=== PATIENT | female | born 1975 | race Caucasian/White ===

== ENCOUNTER 2017-06-18 22:13 | Inpatient (IN) | payer MEDICAID ==
[~2017-06-18] VITALS: Ht 167.6 cm; Wt 79.4 kg
[2017-06-18 23:15] LABS: BASOPHIL % 0.6 % (0-2); PLATELET COUNT 279 x10^3mcL (130-400)
[2017-06-18 23:21] LABS: RED CELL DISTRIBUTION WIDTH 16.8 % (11.5-14.5)
[2017-06-18 23:23] LABS: CALCIUM 7.9 mg/dL (8.5-10.1); CARBON DIOXIDE 25.5 mmol/L (21-32); CHLORIDE SERUM 107 mmol/L (98-107); CREATININE SERUM 0.7 mg/dL (0.6-1.0); GFR1 > 60 mL/min; GLUCOSE SERUM 84 mg/dL (74-106); POTASSIUM SERUM 3.4 mmol/L (3.5-5.1); SODIUM SERUM 141 mmol/L (136-145)
[2017-06-18 23:28] LABS: ALKALINE PHOSPHATASE 92 U/L (46-116); ALT/SGPT 20 U/L (14-59); AST/SGOT 14 U/L (15-37); BILIRUBIN TOTAL 0.5 mg/dL (0.20-1.00); LIPASE 125 IU/L (73-393); TOTAL PROTEIN, SERUM 6.6 g/dL (6.4-8.2)
[2017-06-18 23:30] LABS: ALBUMIN 3.1 g/dL (3.4-5.0)
[2017-06-19] VITALS (7 sets, daily range): BP systolic 98–136; BP diastolic 49–93
[2017-06-19 01:48] LABS: microscopic required? YES; urine erythrocyte 3+ (NEGATIVE)
[2017-06-19] MEDS ORDERED: EPZICOM1 TAB (02:30)
[2017-06-19] MEDS ORDERED: XANAX0.5 MG PO (02:30)
[2017-06-19] MEDS ORDERED: VITAMIN B121000 MCG PO (03:06)
[2017-06-19 04:10] LABS: T3 TOTAL 0.92 ng/mL
[2017-06-19 04:12] LABS: MAGNESIUM 2.1 mg/dL (1.8-2.4); PHOSPHOROUS 3.5 mg/dL (2.5-4.9)
[2017-06-19 04:14] LABS: TOTAL IRON BINDING CAPACITY 393 ug/dL (250-450)
[2017-06-19 04:18] LABS: CHOLESTEROL/HDL RATIO 2.3; IRON 15 ug/dL (50-170)
[2017-06-19 04:20] LABS: FREE T4 1.09 ng/dL (0.76-1.46); FREE THYROXINE INDEX 2.7 ug/dL (1.4-4.5); T4(THYROXINE) 7.7 ug/dL (4.7-13.3)
[2017-06-19 08:11] LABS: PLATELET COUNT 240 x10^3mcL (130-400); RED BLOOD CELLS 3.55 M/mm3 (4.10-5.10); RED CELL DISTRIBUTION WIDTH 17.2 % (11.5-14.5)
[2017-06-19 08:28] LABS: CALCIUM 7.9 mg/dL (8.5-10.1); CARBON DIOXIDE 23.4 mmol/L (21-32); CHLORIDE SERUM 108 mmol/L (98-107); CREATININE SERUM 0.7 mg/dL (0.6-1.0); GFR1 > 60 mL/min; GLUCOSE SERUM 143 mg/dL (74-106); POTASSIUM SERUM 3.6 mmol/L (3.5-5.1); SODIUM SERUM 142 mmol/L (136-145)
[2017-06-19 10:45] LABS: BAND NEUTROPHIL 2 % (0-10); BASOPHIL 0 % (0-2); PLATELET MORPHOLOGY GIANT PLATELET SEEN; SEGMENTED NEUTROPHILS 88 % (37-75); rbc morphology (normal/abnorm) ABNORMAL (NORMAL)
[2017-06-19 21:29] LABS: AMPHETAMINE QUAL UR NONE DETECTED (NEG <=1000)
[2017-06-20 06:27] LABS: CARBON DIOXIDE 25.2 mmol/L (21-32); CHLORIDE SERUM 109 mmol/L (98-107); CREATININE SERUM 0.7 mg/dL (0.6-1.0); GFR1 > 60 mL/min; GLUCOSE SERUM 111 mg/dL (74-106); PHOSPHOROUS 2.9 mg/dL (2.5-4.9); POTASSIUM SERUM 3.8 mmol/L (3.5-5.1); SODIUM SERUM 140 mmol/L (136-145)
[2017-06-20 06:36] VITALS: BP 103/75
[2017-06-20 08:56] LABS: BASOPHIL % 0.4 % (0-2); PLATELET COUNT 294 x10^3mcL (130-400)
[2017-06-20 09:02] LABS: RED CELL DISTRIBUTION WIDTH 17.1 % (11.5-14.5)
[2017-06-20 09:03] VITALS: BP 92/54
[2017-06-20 13:37] VITALS: BP 109/69
[2017-06-20 16:55] VITALS: BP 90/55
[2017-06-20 19:56] VITALS: BP 106/68
[2017-06-21 06:17] VITALS: BP 93/64
[2017-06-21 07:16] LABS: CALCIUM 7.8 mg/dL (8.5-10.1); CARBON DIOXIDE 28.6 mmol/L (21-32); CHLORIDE SERUM 109 mmol/L (98-107); CREATININE SERUM 0.7 mg/dL (0.6-1.0); GFR1 > 60 mL/min; GLUCOSE SERUM 84 mg/dL (74-106); SODIUM SERUM 142 mmol/L (136-145)
[2017-06-21 07:42] LABS: BASOPHIL % 0.4 % (0-2); PLATELET COUNT 277 x10^3mcL (130-400)
[2017-06-21 07:43] LABS: RED CELL DISTRIBUTION WIDTH 17.2 % (11.5-14.5); rbc morphology (normal/abnorm) ABNORMAL (NORMAL)
[2017-06-21 09:47] VITALS: BP 139/83
[2017-06-21] MEDS ORDERED: FER300 PO (11:44)
[2017-06-21] MEDS ORDERED: ELA25 PO (11:46)
[2017-06-21] MEDS ORDERED: VITC PO (11:48)
[2017-06-21] MEDS ORDERED: OMEPRAZOLE40 M1 PO (11:53)
[2017-06-21] MEDS ORDERED: AMITIZA24 MC1 PO (11:54)
[2017-06-21 12:10] VITALS: BP 139/83
== END 2017-06-21 11:15 | disposition home or self-care (01) | DRG 241 ==
LOC: ED 22:13 → DU 06-19 02:00 → MU 06-21 06:28
PROVIDERS: Emergency Medicine; Family Medicine; Internal Medicine Gastroenterology; ADMIT Student in an Organized Health Care Education/Training Program
PROC: 0DB68ZX Excision of Stomach, Via Natural or Artificial Opening Endoscopic, Diagnostic (ICD-10-PCS; principal; 2017-06-20 09:30)
PROC: 0DJD8ZZ Inspection of Lower Intestinal Tract, Via Natural or Artificial Opening Endoscopic (ICD-10-PCS; 2017-06-21)
DX: K25.9 Gastric ulcer, unspecified as acute or chronic, without hemorrhage or perforation (principal); E44.0 Moderate protein-calorie malnutrition; T88.6XXA Anaphylactic reaction due to adverse effect of correct drug or medicament properly administered, initial encounter; F12.10 Cannabis abuse, uncomplicated; D50.9 Iron deficiency anemia, unspecified; K31.7 Polyp of stomach and duodenum; T40.2X5A Adverse effect of other opioids, initial encounter; T40.7X1A Poisoning by cannabis (derivatives), accidental (unintentional), initial encounter; R11.10 Vomiting, unspecified; F12.188 Cannabis abuse with other cannabis-induced disorder; K59.00 Constipation, unspecified; E87.6 Hypokalemia; R31.9 Hematuria, unspecified; K64.4 Residual hemorrhoidal skin tags; K21.9 Gastro-esophageal reflux disease without esophagitis; Z98.84 Bariatric surgery status; Z68.28 Body mass index [BMI] 28.0-28.9, adult; Y92.009 Unspecified place in unspecified non-institutional (private) residence as the place of occurrence of the external cause; Y92.230 Patient room in hospital as the place of occurrence of the external cause
CPT/HCPCS: 43235; 45378; 83880; 84439; 90658; C9113; J0171; J1170; J1200; J1610; J1885; J2250; J2270; J2310; J2405; J2765; J2916; J2920; J2930; J3010; J3480; J3490; J7030; Q0092; Q0163

== ENCOUNTER 2017-07-14 01:15 | Emergency (ER) | payer OTHER ==
[~2017-07-14] VITALS: Ht 167.6 cm; Wt 81.6 kg
[~2017-07-14 01:15] MED LIST: AMITIZA24 MC1 PO; ELA25 PO; EPZICOM1 TAB; FER300 PO; OMEPRAZOLE40 M1 PO; VITAMIN B121000 MCG PO; VITC PO; XANAX0.5 MG PO
[2017-07-14 01:19] VITALS: BP 127/71; Ht 167.6 cm; Wt 81.6 kg
== END 2017-07-14 05:53 | disposition left against medical advice (07) ==
LOC: ED 01:15
DX: Z53.21 Procedure and treatment not carried out due to patient leaving prior to being seen by health care provider (principal)

== ENCOUNTER 2017-07-16 22:12 | Emergency (ER) | payer OTHER ==
[~2017-07-16] VITALS: Ht 167.6 cm; Wt 79.4 kg
[2017-07-16 22:37] VITALS: Ht 167.6 cm; Wt 79.4 kg
[2017-07-17 01:53] VITALS: BP 118/70
== END 2017-07-17 01:53 | disposition home or self-care (01) ==
LOC: ED 22:12
DX: B34.9 Viral infection, unspecified (principal); M32.9 Systemic lupus erythematosus, unspecified; Z86.718 Personal history of other venous thrombosis and embolism; Z88.5 Allergy status to narcotic agent
CPT/HCPCS: J1885; Q0162

== ENCOUNTER 2017-08-05 00:58 | Emergency (ER) | payer OTHER ==
[~2017-08-05] VITALS: Ht 170.2 cm; Wt 81.6 kg
[2017-08-05 01:05] VITALS: Ht 170.2 cm; Wt 81.6 kg
[2017-08-05 02:28] LABS: PLATELET COUNT 285 x10^3mcL (130-400)
[2017-08-05 02:33] LABS: BASOPHIL % 7.5 % (0-2); RED CELL DISTRIBUTION WIDTH 19.2 % (11.5-14.5)
[2017-08-05 02:36] LABS: CALCIUM 8.4 mg/dL (8.5-10.1); CARBON DIOXIDE 26.2 mmol/L (21-32); CHLORIDE SERUM 106 mmol/L (98-107); CREATININE SERUM 0.6 mg/dL (0.6-1.0); GFR1 > 60 mL/min; GLUCOSE SERUM 93 mg/dL (74-106); POTASSIUM SERUM 3.9 mmol/L (3.5-5.1); SODIUM SERUM 143 mmol/L (136-145)
[2017-08-05 02:41] LABS: ALBUMIN 3.5 g/dL (3.4-5.0); ALKALINE PHOSPHATASE 91 U/L (46-116); ALT/SGPT 30 U/L (14-59); AST/SGOT 23 U/L (15-37); BILIRUBIN TOTAL 0.71 mg/dL (0.20-1.00); LIPASE 120 IU/L (73-393)
[2017-08-05 05:02] VITALS: BP 115/71
== END 2017-08-05 05:02 | disposition home or self-care (01) ==
LOC: ED 00:58
PROVIDERS: Emergency Medicine
DX: R10.9 Unspecified abdominal pain (principal); R11.0 Nausea; M32.9 Systemic lupus erythematosus, unspecified; Z88.5 Allergy status to narcotic agent; Z98.890 Other specified postprocedural states
CPT/HCPCS: J1170; J2405; J7030

== ENCOUNTER 2017-10-09 00:23 | Emergency (ER) | payer MEDICAID ==
[~2017-10-09] VITALS: Ht 167.6 cm; Wt 77.6 kg
[2017-10-09 00:42] VITALS: Ht 167.6 cm; Wt 77.6 kg
[2017-10-09 01:29] LABS: CALCIUM 8.4 mg/dL (8.5-10.1); CARBON DIOXIDE 27.8 mmol/L (21-32); CHLORIDE SERUM 107 mmol/L (98-107); CREATININE SERUM 0.6 mg/dL (0.6-1.0); GFR1 > 60 mL/min; GLUCOSE SERUM 62 mg/dL (74-106); POTASSIUM SERUM 3.3 mmol/L (3.5-5.1); SODIUM SERUM 143 mmol/L (136-145)
[2017-10-09 01:37] LABS: ALKALINE PHOSPHATASE 72 U/L (46-116); ALT/SGPT 17 U/L (14-59); AST/SGOT 13 U/L (15-37); BILIRUBIN TOTAL 0.56 mg/dL (0.20-1.00); LIPASE 98 IU/L (73-393); TOTAL PROTEIN, SERUM 6.7 g/dL (6.4-8.2)
[2017-10-09 02:02] LABS: BASOPHIL % 1.4 % (0-2); PLATELET COUNT 331 x10^3mcL (130-400); RED CELL DISTRIBUTION WIDTH 14.8 % (11.5-14.5)
[2017-10-09 04:51] LABS: MAGNESIUM 2.1 mg/dL (1.8-2.4); PHOSPHOROUS 3.9 mg/dL (2.5-4.9)
[2017-10-09 04:59] LABS: CHOLESTEROL/HDL RATIO 2.6
[2017-10-09 05:09] LABS: FREE T4 1.13 ng/dL (0.76-1.46); FREE THYROXINE INDEX 3.1 ug/dL (1.4-4.5); T4(THYROXINE) 9.5 ug/dL (4.7-13.3)
[2017-10-09 05:28] VITALS: BP 128/59
== END 2017-10-09 05:00 | disposition left against medical advice (07) ==
LOC: ED 00:23 → DU 03:27 → ED 03:27
PROVIDERS: Emergency Medicine; Family Medicine
DX: K65.1 Peritoneal abscess (principal)
CPT/HCPCS: 82962; 83880; 84439; J1956; J2405; J3010; J3490; J7030; Q0092; Q9967